=== PATIENT | male | born 1965 | race Caucasian/White ===

== ENCOUNTER 2017-09-21 23:58 | Emergency (ER) | payer OTHER ==
[~2017-09-21] VITALS: Ht 182.9 cm; Wt 110.0 kg
[2017-09-22 00:04] VITALS: BP 145/70
== END 2017-09-22 01:35 | disposition left against medical advice (07) ==
LOC: ER 09-22 00:03
DX: Z53.21 Procedure and treatment not carried out due to patient leaving prior to being seen by health care provider (principal)

== ENCOUNTER 2017-12-15 14:03 | Emergency (ER) | payer OTHER ==
[~2017-12-15] VITALS: Ht 185.4 cm; Wt 90.0 kg
[2017-12-15 16:00] VITALS: BP 133/88
== END 2017-12-15 16:45 | disposition left against medical advice (07) ==
LOC: ER 14:03
DX: S00.81XA Abrasion of other part of head, initial encounter (principal); F11.10 Opioid abuse, uncomplicated; F17.200 Nicotine dependence, unspecified, uncomplicated; X58.XXXA Exposure to other specified factors, initial encounter; Y93.89 Activity, other specified; Y92.89 Other specified places as the place of occurrence of the external cause; Y99.8 Other external cause status
CPT/HCPCS: 82962; 99283; Z7610

== ENCOUNTER 2018-10-12 18:50 | Inpatient (IN) | payer OTHER ==
[~2018-10-12] VITALS: Ht 177.8 cm; Wt 110.7 kg
[2018-10-12] MEDS ORDERED: ASPIRIN 81MG TABLET PO ONE (19:30)
[2018-10-12] MEDS ORDERED: NITROGLYCERIN 0.4MG TABLET SL SL PRN (19:30)
[2018-10-12] MEDS ORDERED: LORAZEPAM 2MG/ML CPJ IV ONE (19:45)
[2018-10-12] MEDS ORDERED: LORAZEPAM 2MG/ML CPJ IM STA (21:12)
[2018-10-12 23:01] LABS: BASOPHILS % 0.7 % (0.0-2.0); CHLORIDE 108 mEq/L (98-107); EOSINOPHILS % 0.8 % (0.0-5.0); HEMATOCRIT. 48.6 % (42.0-52.0); HEMOGLOBIN. 16.4 g/dL (14.0-18.0); LYMPHOCYTES % 22.7 % (20.0-50.0); MEAN CORPUSCULAR HEMOGLOBIN 32.1 pg (28.0-32.0); MEAN CORPUSCULAR VOLUME 95.2 fL (80.0-94.0); MEAN PLATELET VOLUME 7.2 fl (7.4-10.4); MONOCYTES % 10.2 % (2.0-8.0); NEUTROPHILS % 65.6 % (40.0-76.0); PLATELET 281 x1000/uL (130-400); RED CELL DISTRIBUTION WIDTH 13.8 % (11.6-14.6)
[2018-10-12 23:07] LABS: D-DIMER 0.21 mg/L FEU (<0.50); INR 1.1; PARTIAL THROMBOPLASTIN TIME 27.9 sec (23.4-31.0); PROTHROMBIN TIME 11.3 sec (9.6-11.0)
[2018-10-12] MEDS ORDERED: LORAZEPAM 2MG/ML CPJ ONE (23:27)
[2018-10-12] MEDS ORDERED: ONDANSETRON HCL 4MG/2ML INJ IV ONE (23:45)
[2018-10-12] MEDS ORDERED: PROPOFOL 10MG/ML 100ML 100 ML IV ONE ×2 (23:45)
[2018-10-13] VITALS (28 sets, daily range): BP systolic 94–126; BP diastolic 60–77
[2018-10-13 00:37] LABS: BG BASE EXCESS -4.3 mmol/L (-2.0-2.0); BG CARBOXYHEMOGLOBIN 2.6 % (0.5-1.5); BG DEOXYHEMOGLOBIN 0.6 % (0.0-5.0); BG FRACTION INSPIRED OXYGEN 100; BG HCO3 ACT 23.5 mmol/L (22.0-26.0); BG METHEMOGLOBIN 0.3 % (0.0-1.5); BG OXYGEN SATURATION 99.4 % (92.0-98.5); BG OXYHEMOGLOBIN 96.5 % (94.0-97.0); BG PCO2 53.7 mmHg (35.0-45.0); BG PH 7.259 (7.350-7.450); BG PO2 383.3 mmHg (75.0-100.0); BG SAMPLE SITE RIGHT BRACHIAL; BG TIDAL VOLUME(mL) 500 mL; BG TOTAL HEMOGLOBIN 15.9 g/dL (12.0-18.0); BG VENT MODE VENT - A/C; BG VENT RATE 14 set
[2018-10-13 01:34] LABS: CLARITY URINE CLOUDY (CLEAR); COLOR URINE YELLOW (YELLOW); KETONES URINE NEGATIVE (NEGATIVE); LEUKOCYTE ESTERASE URINE NEGATIVE (NEGATIVE); NITRITE URINE NEGATIVE (NEGATIVE); OCCULT BLOOD URINE TRACE (NEGATIVE); PROTEIN URINE 1+ (NEGATIVE); SPECIFIC GRAVITY URINE 1.017 (1.005-1.030)
[2018-10-13 01:55] LABS: *AMPHETAMINES SCREEN URINE NEGATIVE (NEGATIVE)
[2018-10-13 01:56] LABS: *BARBITURATES SCREEN URINE NEGATIVE (NEGATIVE); *BENZODIAZEPINES SCREEN URINE NEGATIVE (NEGATIVE); *COCAINE SCREEN URINE NEGATIVE (NEGATIVE); METHADONE URINE SCREEN NEGATIVE (NEGATIVE); OPIATES URINE SCREEN PRESUMTIVE POSITIVE (NEGATIVE)
[2018-10-13 01:57] LABS: CANNABINOID URINE SCREEN NEGATIVE (NEGATIVE); PHENCYCLIDINE URINE SCREEN NEGATIVE (NEGATIVE)
[2018-10-13] MEDS ORDERED: LORAZEPAM 2MG/ML CPJ IM STA (02:17)
[2018-10-13] MEDS ORDERED: SODIUM CHLORIDE 0.9% 1,000 ML IV ONE (02:17)
[2018-10-13] MEDS ORDERED: PROPOFOL 10MG/ML 100ML 100 ML IV ONE (04:22)
[2018-10-13] MEDS ORDERED: HYDROMORPHONE HCL/PF 2MG/ML CPJ IV PRN (06:00)
[2018-10-13] MEDS ORDERED: HYDRALAZINE 20MG/ML VIAL IV PRN (06:00)
[2018-10-13] MEDS ORDERED: DOCUSATE SODIUM 100MG CAPSULE PO PRN (06:00)
[2018-10-13] MEDS ORDERED: ONDANSETRON HCL 4MG/2ML INJ IV PRN (06:00)
[2018-10-13] MEDS ORDERED: MAGNESIUM/ALUMINUM HYDROXIDE/SIMETHICONE 30ML UDC PO PRN (06:00)
[2018-10-13] MEDS ORDERED: NA PHOS,M-B/NA PHOS,DI-BA ENEMA 118ML PR PRN (06:00)
[2018-10-13] MEDS ORDERED: GUAIFENESIN 200MG/10ML SUGAR FREE UDC PO PRN (06:00)
[2018-10-13] MEDS ORDERED: DIPHENHYDRAMINE 50MG/ML VIAL IV PRN (06:00)
[2018-10-13] MEDS ORDERED: CLONIDINE 0.1MG TABLET PO PRN (06:00)
[2018-10-13] MEDS ORDERED: ACETAMINOPHEN 325MG TABLET PO PRN (06:00)
[2018-10-13] MEDS: SODIUM CHLORIDE 0.9% INJ 3ML FLUSH IVF SCH ×3 (06:56→21:57)
[2018-10-13] MEDS: DEXT 5%/0.45% NACL 1000ML 1,000 ML IV SCH ×3 (07:00→20:00)
[2018-10-13 08:37] LABS: BG BASE EXCESS -2.5 mmol/L (-2.0-2.0); BG CARBOXYHEMOGLOBIN 1.2 % (0.5-1.5); BG DEOXYHEMOGLOBIN 0.8 % (0.0-5.0); BG FRACTION INSPIRED OXYGEN 60; BG HCO3 ACT 22.3 mmol/L (22.0-26.0); BG METHEMOGLOBIN 0.1 % (0.0-1.5); BG OXYGEN SATURATION 99.2 % (92.0-98.5); BG OXYHEMOGLOBIN 97.9 % (94.0-97.0); BG PH 7.376 (7.350-7.450); BG PO2 218.9 mmHg (75.0-100.0); BG SAMPLE SITE RIGHT BRACHIAL; BG TIDAL VOLUME(mL) 500 mL; BG TOTAL HEMOGLOBIN 14.8 g/dL (12.0-18.0); BG VENT MODE VENT - A/C; BG VENT RATE 18 set
[2018-10-13] MEDS: ENOXAPARIN 30MG/0.3ML SYR SUBCUT SCH ×2 (08:55→21:01)
[2018-10-13] MEDS: LEVOFLOXACIN 500MG PREMIX 100 ML IV SCH (08:55)
[2018-10-13 10:31] LABS: HEMATOCRIT 42.3 % (42.0-52.0); HEMOGLOBIN 14.3 g/dL (14.0-18.0); MEAN CORPUSCULAR HEMOGLOBIN 31.7 pg (28.0-32.0); MEAN CORPUSCULAR VOLUME 93.5 fL (80.0-94.0); PLATELET 208 x1000/uL (130-400); RED BLOOD CELL COUNT 4.52 mill/uL (4.7-6.1); RED CELL DISTRIBUTION WIDTH 13.8 % (11.6-14.6)
[2018-10-13 10:39] LABS: CHLORIDE 112 mEq/L (98-107)
[2018-10-13 10:47] LABS: CREATINE KINASE 582 IU/L (39-308)
[2018-10-13 10:55] LABS: CREATINE KINASE MB FRACTION 9.1 ng/mL (0.5-3.6)
[2018-10-13] MEDS: PROPOFOL 10MG/ML 100ML 100 ML IV PRN ×2 (14:54→21:58)
[2018-10-13 17:54] LABS: CREATINE KINASE MB FRACTION 6.5 ng/mL (0.5-3.6)
[2018-10-14] VITALS (46 sets, daily range): BP systolic 95–152; BP diastolic 63–90
[2018-10-14] MEDS: PROPOFOL 10MG/ML 100ML 100 ML IV PRN ×3 (01:31→06:57)
[2018-10-14] MEDS: SODIUM CHLORIDE 0.9% INJ 3ML FLUSH IVF SCH ×3 (05:37→21:15)
[2018-10-14 06:12] LABS: BASOPHILS % 0.3 % (0.0-2.0); EOSINOPHILS % 1.8 % (0.0-5.0); HEMATOCRIT. 43.1 % (42.0-52.0); HEMOGLOBIN. 14.6 g/dL (14.0-18.0); LYMPHOCYTES % 21.6 % (20.0-50.0); MEAN CORPUSCULAR HEMOGLOBIN 31.9 pg (28.0-32.0); MEAN CORPUSCULAR VOLUME 94.1 fL (80.0-94.0); MEAN PLATELET VOLUME 7.5 fl (7.4-10.4); MONOCYTES % 7.7 % (2.0-8.0); NEUTROPHILS % 68.6 % (40.0-76.0); PLATELET 193 x1000/uL (130-400); RED BLOOD CELL COUNT 4.58 mill/uL (4.7-6.1); RED CELL DISTRIBUTION WIDTH 13.6 % (11.6-14.6)
[2018-10-14 06:17] LABS: CHLORIDE 111 mEq/L (98-107)
[2018-10-14 06:28] LABS: PHOSPHORUS 2.2 mg/dL (2.5-4.9)
[2018-10-14 06:29] LABS: LDL CHOLESTEROL 90 mg/dL (5-100)
[2018-10-14 06:30] LABS: T4 FREE 1.15 ng/dL (0.76-1.46)
[2018-10-14 06:31] LABS: HDL CHOLESTEROL 39 mg/dL (40-59)
[2018-10-14] MEDS: IPRATROPIUM/ALBUTEROL 0.5-3(2.5)MG/3ML NEB INH PRN ×2 (08:13→13:02)
[2018-10-14 08:25] LABS: BG BASE EXCESS 0.7 mmol/L (-2.0-2.0); BG CARBOXYHEMOGLOBIN 1.2 % (0.5-1.5); BG DEOXYHEMOGLOBIN 3.3 % (0.0-5.0); BG FRACTION INSPIRED OXYGEN 40; BG METHEMOGLOBIN 0.1 % (0.0-1.5); BG OXYGEN SATURATION 96.7 % (92.0-98.5); BG OXYHEMOGLOBIN 95.4 % (94.0-97.0); BG PH 7.425 (7.350-7.450); BG SAMPLE SITE RIGHT RADIAL; BG TIDAL VOLUME(mL) 500 mL; BG TOTAL HEMOGLOBIN 15.1 g/dL (12.0-18.0); BG VENT MODE VENT - A/C; BG VENT RATE 18 set
[2018-10-14] MEDS ORDERED: POTASSIUM PHOS,M-BASIC-D-BASIC 20 MMOL in DEXT 5% WATER 243.3333 ML IV SCH (10:00)
[2018-10-14] MEDS: MVI, ADULT NO.1 10 ML, THIAMINE HCL 100 MG, FOLIC ACID 1 MG in DEXT 5%/0.45% NACL 1000M... IV SCH ×4 (10:38)
[2018-10-14] MEDS: LORAZEPAM 2MG/ML CPJ IV PRN ×2 (10:40→13:35)
[2018-10-14] MEDS ORDERED: LORAZEPAM 2MG/ML CPJ IV PRN (10:45)
[2018-10-14 11:55] LABS: BG BASE EXCESS 0.2 mmol/L (-2.0-2.0); BG CARBOXYHEMOGLOBIN 0.5 % (0.5-1.5); BG DEOXYHEMOGLOBIN 3.6 % (0.0-5.0); BG FRACTION INSPIRED OXYGEN 40; BG HCO3 ACT 24.9 mmol/L (22.0-26.0); BG METHEMOGLOBIN 0.1 % (0.0-1.5); BG OXYGEN SATURATION 96.4 % (92.0-98.5); BG OXYHEMOGLOBIN 95.8 % (94.0-97.0); BG PCO2 40.3 mmHg (35.0-45.0); BG PH 7.408 (7.350-7.450); BG PO2 86.9 mmHg (75.0-100.0); BG PRESSURE SUPPORT 10; BG SAMPLE SITE RIGHT RADIAL; BG TOTAL HEMOGLOBIN 15.7 g/dL (12.0-18.0); BG VENT MODE VENT - CPAP
[2018-10-14] MEDS: LEVOFLOXACIN 500MG PREMIX 100 ML IV SCH (13:35)
[2018-10-14] MEDS: IPRATROPIUM/ALBUTEROL 0.5-3(2.5)MG/3ML NEB HHN SCH ×2 (17:07→20:28)
[2018-10-14] MEDS: FAMOTIDINE 20MG/2ML VIAL IV SCH (21:35)
[2018-10-15] VITALS (32 sets, daily range): BP systolic 122–165; BP diastolic 47–100
[2018-10-15] MEDS: IPRATROPIUM/ALBUTEROL 0.5-3(2.5)MG/3ML NEB HHN SCH ×6 (00:17→20:13)
[2018-10-15] MEDS: SODIUM CHLORIDE 0.9% INJ 3ML FLUSH IVF SCH ×3 (05:16→22:00)
[2018-10-15 05:50] LABS: BASOPHILS % 0.5 % (0.0-2.0); EOSINOPHILS % 2.5 % (0.0-5.0); HEMATOCRIT. 45.9 % (42.0-52.0); HEMOGLOBIN. 15.6 g/dL (14.0-18.0); LYMPHOCYTES % 20.2 % (20.0-50.0); MEAN CORPUSCULAR HEMOGLOBIN 31.9 pg (28.0-32.0); MEAN PLATELET VOLUME 7.5 fl (7.4-10.4); MONOCYTES % 9.7 % (2.0-8.0); NEUTROPHILS % 67.1 % (40.0-76.0); PLATELET 200 x1000/uL (130-400); RED BLOOD CELL COUNT 4.88 mill/uL (4.7-6.1); RED CELL DISTRIBUTION WIDTH 13.5 % (11.6-14.6)
[2018-10-15 05:58] LABS: CHLORIDE 110 mEq/L (98-107)
[2018-10-15 06:07] LABS: PHOSPHORUS 2.6 mg/dL (2.5-4.9)
[2018-10-15] MEDS: LEVOFLOXACIN 500MG PREMIX 100 ML IV SCH (08:46)
[2018-10-15] MEDS: FAMOTIDINE 20MG/2ML VIAL IV SCH (08:46)
[2018-10-15] MEDS: DEXT 5%/0.45% NACL 1000ML 1,000 ML IV SCH (10:07)
[2018-10-15] MEDS: MVI, ADULT NO.1 10 ML, THIAMINE HCL 100 MG, FOLIC ACID 1 MG in DEXT 5%/0.45% NACL 1000M... IV SCH ×4 (10:45)
[2018-10-15] MEDS: LORAZEPAM 2MG/ML CPJ IV PRN (12:11)
[2018-10-15] MEDS ORDERED: POTASSIUM CHLORIDE INJ 40 MEQ in DEXT 5% WATER 250 ML IV NR (13:00)
[2018-10-15] MEDS: PHENOL/SODIUM PHENOLATE 1.4% SRPAY 177ML MM PRN (13:48)
[2018-10-15] MEDS: NICOTINE 21MG PATCH TD SCH (13:49)
[2018-10-15 13:56] LABS: HEPATITIS B SURFACE ANTIGEN NEGATIVE
[2018-10-15 14:26] LABS: HEPATITIS A AB IGM NEGATIVE (NEGATIVE)
[2018-10-15] MEDS: HYDROCODONE/ACETAMINOPHEN 10/325MG TABLET PO PRN ×2 (14:26→21:59)
[2018-10-15] MEDS: SUCRALFATE 1 G/10 ML UDC PO SCH ×2 (16:30→21:53)
[2018-10-15] MEDS ORDERED: FENTANYL CITRATE/PF 50MCG/ML 2ML VIAL ONE (17:27)
[2018-10-15] MEDS ORDERED: MIDAZOLAM HCL 2 MG/2 ML VIAL ONE ×2 (17:27→17:37)
[2018-10-15] MEDS ORDERED: PROPOFOL 200MG/20ML VIAL IV ONE (17:28)
[2018-10-15] MEDS ORDERED: LIDOCAINE HCL/PF 1% 10 MG/ML 5ML VIAL ONE (17:30)
[2018-10-15] MEDS: PANTOPRAZOLE SODIUM 40 MG/VIAL IV SCH (21:53)
[2018-10-16] VITALS: BP 134/82
[2018-10-16] MEDS: DEXT 5%/0.45% NACL 1000ML 1,000 ML IV SCH ×2 (00:35→12:47)
[2018-10-16] MEDS: IPRATROPIUM/ALBUTEROL 0.5-3(2.5)MG/3ML NEB HHN SCH ×4 (01:10→12:50)
[2018-10-16] MEDS: HYDROCODONE/ACETAMINOPHEN 10/325MG TABLET PO PRN ×3 (02:28→13:11)
[2018-10-16 04:00] VITALS: BP 114/70
[2018-10-16] MEDS: SODIUM CHLORIDE 0.9% INJ 3ML FLUSH IVF SCH (05:55)
[2018-10-16] MEDS: SUCRALFATE 1 G/10 ML UDC PO SCH ×2 (06:21→11:52)
[2018-10-16 07:21] LABS: BASOPHILS % 1.7 % (0.0-2.0); HEMATOCRIT. 52.4 % (42.0-52.0); HEMOGLOBIN. 17.4 g/dL (14.0-18.0); LYMPHOCYTES % 22.3 % (20.0-50.0); MEAN CORPUSCULAR HEMOGLOBIN 31.5 pg (28.0-32.0); MEAN CORPUSCULAR VOLUME 95.1 fL (80.0-94.0); MEAN PLATELET VOLUME 8.5 fl (7.4-10.4); MONOCYTES % 7.6 % (2.0-8.0); NEUTROPHILS % 64.4 % (40.0-76.0); PLATELET 80 x1000/uL (130-400); RED BLOOD CELL COUNT 5.51 mill/uL (4.7-6.1); RED CELL DISTRIBUTION WIDTH 13.7 % (11.6-14.6)
[2018-10-16 08:16] VITALS: BP 127/80
[2018-10-16] MEDS: NICOTINE 21MG PATCH TD SCH (08:18)
[2018-10-16] MEDS: MVI, ADULT NO.1 10 ML, THIAMINE HCL 100 MG, FOLIC ACID 1 MG in DEXT 5%/0.45% NACL 1000M... IV SCH ×4 (08:19)
[2018-10-16] MEDS: LEVOFLOXACIN 500MG PREMIX 100 ML IV SCH (08:19)
[2018-10-16] MEDS: PHENOL/SODIUM PHENOLATE 1.4% SRPAY 177ML MM PRN (08:32)
[2018-10-16] MEDS: PANTOPRAZOLE SODIUM 40 MG/VIAL IV SCH (09:00)
[2018-10-16 09:48] LABS: CHLORIDE 107 mEq/L (98-107)
[2018-10-16 10:00] LABS: PHOSPHORUS 3.1 mg/dL (2.5-4.9)
[2018-10-16] MEDS: LORAZEPAM 2MG/ML CPJ IV PRN (11:13)
[2018-10-16 12:00] VITALS: BP 115/74
[2018-10-16 15:17] VITALS: BP 118/96
[2018-10-17] MEDS ORDERED: LEVOFLOXACIN 500MG TABLET PO SCH (11:00)
== END 2018-10-16 15:12 | disposition home or self-care (01) | DRG 816 ==
LOC: ER 18:50 → EDBEDREQ 10-13 01:21 → EDBEDREQDT 10-13 01:21 → EDBEDREQTM 10-13 01:21 → ENRESERV 10-13 03:03 → ER 10-13 03:46 → MICUSO 10-13 06:32 → 8WST 10-15 23:58
PROVIDERS: ADMIT Internal Medicine; ATTEND Internal Medicine
PROC: 0BH17EZ Insertion of Endotracheal Airway into Trachea, Via Natural or Artificial Opening (ICD-10-PCS; principal; 2018-10-13)
PROC: 5A1945Z Respiratory Ventilation, 24-96 Consecutive Hours (ICD-10-PCS; 2018-10-13)
PROC: 06HY33Z Insertion of Infusion Device into Lower Vein, Percutaneous Approach (ICD-10-PCS; 2018-10-13)
PROC: 0D9670Z Drainage of Stomach with Drainage Device, Via Natural or Artificial Opening (ICD-10-PCS; 2018-10-13)
PROC: 0DB68ZX Excision of Stomach, Via Natural or Artificial Opening Endoscopic, Diagnostic (ICD-10-PCS; 2018-10-15)
DX: T40.1X1A Poisoning by heroin, accidental (unintentional), initial encounter (principal); J96.00 Acute respiratory failure, unspecified whether with hypoxia or hypercapnia; G92 Toxic encephalopathy; K22.11 Ulcer of esophagus with bleeding; N17.9 Acute kidney failure, unspecified; K29.71 Gastritis, unspecified, with bleeding; M62.82 Rhabdomyolysis; R65.10 Systemic inflammatory response syndrome (SIRS) of non-infectious origin without acute organ dysfunction; J44.1 Chronic obstructive pulmonary disease with (acute) exacerbation; E83.39 Other disorders of phosphorus metabolism; K57.10 Diverticulosis of small intestine without perforation or abscess without bleeding; F19.10 Other psychoactive substance abuse, uncomplicated; F10.10 Alcohol abuse, uncomplicated; F17.200 Nicotine dependence, unspecified, uncomplicated; B19.20 Unspecified viral hepatitis C without hepatic coma; E87.6 Hypokalemia; F11.229 Opioid dependence with intoxication, unspecified; F12.90 Cannabis use, unspecified, uncomplicated; F17.210 Nicotine dependence, cigarettes, uncomplicated; K21.9 Gastro-esophageal reflux disease without esophagitis; Z90.49 Acquired absence of other specified parts of digestive tract; Z78.1 Physical restraint status
CPT/HCPCS: 31500; 36415; 36556; 36600; 71045; 76700; 80048; 80061; 80076; 80305; 82375; 82550; 82553; 82805; 83735; 83880; 84100; 84439; 84443; 84478; 84484; 85027; 85379; 86705; 86709; 86803; 87340; 88305; 93005; 94002; 94003; 94640; 97165; 99291; C9113; J1170; J1650; J1956; J2060; J2250; J2405; J2704; J3010; J3411; J3480; J3490; J7030; J7060; J7620; A4315